=== PATIENT | female | born 1930 | race Native Hawaiian/Other Pacific Islander ===

== ENCOUNTER 2017-12-15 01:23 | Outpatient (CLI) | payer OTHER, MEDICARE ==
[2017-12-15] MEDS ORDERED: ASPIR-LOW81 MG PO (01:49)
[2017-12-15] MEDS ORDERED: OXYC5TAB53 PO (01:50)
[2017-12-15] MEDS ORDERED: SIMV20TA2 PO (01:50)
[2017-12-15] MEDS ORDERED: EQ OMEPRAZOLE20 MG PO (01:51)
[2017-12-15] MEDS ORDERED: LABETALOL100 MG PO (01:51)
[2017-12-15] MEDS ORDERED: CARB25TA29 PO (01:52)
== END 2017-12-15 01:25 | disposition short-term general hospital (02) ==
LOC: AMB 01:23
DX: R07.89 Other chest pain (principal)
CPT/HCPCS: A0425; A0427

== ENCOUNTER 2017-12-15 01:32 | Emergency (ER) | payer OTHER, MEDICARE ==
[~2017-12-15] VITALS: Ht 157.5 cm; Wt 72.6 kg
[2017-12-15] MEDS ORDERED: ASPIR-LOW81 MG PO (01:49)
[2017-12-15] MEDS ORDERED: OXYC5TAB53 PO (01:50)
[2017-12-15] MEDS ORDERED: SIMV20TA2 PO (01:50)
[2017-12-15] MEDS ORDERED: EQ OMEPRAZOLE20 MG PO (01:51)
[2017-12-15] MEDS ORDERED: LABETALOL100 MG PO (01:51)
[2017-12-15] MEDS ORDERED: CARB25TA29 PO (01:52)
[2017-12-15 02:24] LABS: PLATELET COUNT 177 K/uL (152-353)
[2017-12-15 02:25] LABS: POTASSIUM 4.2 mmol/L (3.6-5.2)
[2017-12-15 02:45] LABS: PARTIAL THROMBOPLASTIN TIME 32.8 SECONDS (24.5-33.6)
[2017-12-15 10:44] VITALS: BP 146/64; TEMP 98.4
== END 2017-12-15 11:02 | disposition short-term general hospital (02) ==
LOC: ED 01:32
PROVIDERS: Specialist
DX: I20.0 Unstable angina (principal)
CPT/HCPCS: 80053; 82150; 82550; 82553; 83690; 83735; 83880; 84484; 85027; 85379; 85610; 85730; 93005; 96374; 96375; 99284; J2270; J2405; J3490

== ENCOUNTER 2017-12-15 11:04 | Outpatient (CLI) | payer OTHER, MEDICARE ==
[~2017-12-15 11:04] MED LIST: ASPIR-LOW81 MG PO; CARB25TA29 PO; EQ OMEPRAZOLE20 MG PO; LABETALOL100 MG PO; OXYC5TAB53 PO; SIMV20TA2 PO
== END 2017-12-15 11:22 | disposition short-term general hospital (02) ==
LOC: AMB 11:04
DX: R07.89 Other chest pain (principal)
CPT/HCPCS: A0425; A0429